=== PATIENT | female | born 1995 | race Caucasian/White ===

== ENCOUNTER 2017-03-11 00:32 | Emergency (ER) | payer OTHER ==
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
[2017-03-11 03:55] VITALS: BMI 19.9
[2017-03-11 04:22] VITALS: BP 108/65; PULSE 77; TEMP 98.1
== END 2017-03-11 04:47 | disposition short-term general hospital (02) ==
LOC: JER 00:32
DX: R10.2 Pelvic and perineal pain (principal)
CPT/HCPCS: 99284-25